=== PATIENT | male | born 1990 | race Hispanic/Latino ===

== ENCOUNTER 2020-10-02 07:28 | Observation (INO) | payer OTHER ==
[~2020-10-02] VITALS: Ht 175.3 cm; Wt 89.4 kg
[~2020-10-02 07:28] MED LIST: HYDR50TA70 PO; LR 1,000 ML IV ONE; ceFAZolin SOD 2 GM in IV 1 EA IV ONE
[2020-10-02] MEDS ORDERED: propofoL 200 MG/20 ML VIAL As Ordered ONE ×2 (10:26→11:34)
[2020-10-02] MEDS ORDERED: ONDANSETRON 4MG/2ML VIAL As Ordered ONE (10:26)
[2020-10-02] MEDS ORDERED: LIDOCAINE 2% 100MG/5ML SDV (FOR ANES.) As Ordered ONE (10:26)
[2020-10-02] MEDS ORDERED: dexameTHASONE 4 MG/ML 1ML VIAL (J1100 PER 1MG) As Ordered ONE (10:26)
[2020-10-02] MEDS ORDERED: MIDAZOLAM INJ 2MG/2ML VIAL (J2250 PER 1MG) As Ordered ONE (10:27)
[2020-10-02] MEDS ORDERED: fentaNYL 250 MCG/5 ML INJECTION (J3010) As Ordered ONE (10:27)
[2020-10-02] MEDS ORDERED: LIDOCAINE 1% MDV 20ML VIAL As Ordered ONE (10:53)
[2020-10-02] MEDS ORDERED: EPINEPHrine INJ 1 MG/ML 1ML AMP As Ordered ONE (10:53)
[2020-10-02] MEDS ORDERED: BACITRACIN PWD 50,000 UNITS VIAL As Ordered ONE (10:53)
[2020-10-02] MEDS ORDERED: HYDROmorphone HCL 2 MG/ML 1ML VIAL (J1170) As Ordered ONE (12:01)
[2020-10-02] MEDS ORDERED: ACETAMINOPHEN 1000MG 100ML IV BTL (OFIRMEV) (J0131 PER 10MG) As Ordered ONE (12:01)
--- NOTE | 2020-10-02 13:48 | POST-OPPD ---
Postoperative Procedure Note Date Of Procedure: Oct 02, 2020 PREOPERATIVE DIAGNOSIS: Bilateral gynecomastia POSTOPERATIVE DIAGNOSIS: same FINDINGS: gynecomastia bilateral PROCEDURE: Bilateral subcutaneous mastectomies for gynecomastia. SURGEON: Dr Quintero WELDING MACHINE OPERATOR RESISTANCE: Dr Caballero ANESTHESIA: General SPECIMENS: Right and Left breast tissue and suction fluid for gross path ESTIMATED BLOOD LOSS: 50 cc REPLACED: none DRAINS: 15 FR round drains x 2 COMPLICATIONS: none POSTOPERATIVE CONDITION: stable OSIEL QUINTERO DO Oct 02, 2020 13:48
--- NOTE | 2020-10-02 13:48 | ROOPDOC ---
[facility] Report Of Operation Report of Operation DATE OF PROCEDURE: 10/02/20 PREOPERATIVE DIAGNOSIS: Bilateral gynecomastia POSTOPERATIVE DIAGNOSIS: same FINDINGS: gynecomastia bilateral PROCEDURE: Bilateral subcutaneous mastectomies for gynecomastia. SURGEON: Dr Quintero EMBEDDED SOFTWARE ENGINEER: Dr Caballero ANESTHESIA: General SPECIMENS: Right and Left breast tissue and suction fluid for gross path ESTIMATED BLOOD LOSS: 50 cc REPLACED: none DRAINS: 15 FR round drains x 2 COMPLICATIONS: none POSTOPERATIVE CONDITION: stable This is a 30-year-old male who is diagnosed with bilateral gynecomastia. The pa tient is complaining of persistent tenderness on both breasts, which are bothering him. The studies were done again preoperatively for gynecomastia workup. Benign endocrine profile and positive gynecomastia on ultrasound. The patient is scheduled for surgery. All of the risks and benefits and alternatives discussed with the patient at length, and he is ready to proceed. DESCRIPTION OF PROCEDURE: On the day of surgery, he was marked in the upright position and then he was brought into the operating room, placed in supine position. Preoperative antibiotics given, sequential stockings placed on the lower calf. General anesthesia was induced. He was prepped and draped in the usual sterile fashion. We started our procedure with making a stab incision on the right lateral chest. Tumescent solution was infiltrated in the right breast, 400 mL total. Vaser liposuction was used for melting down the fat and breaking out the scar tissue on the right side, and we used 2.9 three-ring cannula with 80% of the power for 5 minutes. After that part of the procedure was completed, we used regular suction-assisted lipectomy to remove the rest of the liposuction. Then, we made an infra-areolar incision, and dissection of thick tissue started out using electrocautery under direct vision with a lighted retractor. Dr. Caballero was instrumental in assisting directing the lighted retractor which aided proper resection and hemostasis part of this procedure. The mass was completely excised using electrocautery. The pectoralis muscle was in good condition. The skin was in good condition. The wound was irrigated with bacitracin irrigation solution. Then, 15 Fr round drain was placed through the initial stab incision that was done for the liposuction and placed in the cavity and then the wound was closed with interrupted #4-0 Monocryl sutures and #5-0 plain. Then, we turned our attention to the left side. Vaser Liposuction was used for melting down the fat and breaking out the scar tissue on the left side, and we used 2.9 three-ring cannula with 80% of the power for 5 minutes. After that part of the procedure was completed, we used regular suction-assisted lipectomy to remove the rest of the liposuction. Then, we made an infra-areolar incision, and dissection of thick tissue started out using electrocautery under direct vision with a lighted retractor. Dr. Caballero was instrumental in assisting directing the lighted retractor which aided proper resection and hemostasis part of this procedure. The mass was completely excised using electrocautery. The pectoralis muscle was in good condition. The skin was in good condition. The wound was irrigated with bacitracin irrigation solution. Then, 15 Fr round drain was placed through the initial stab incision that was done for the liposuction and placed in the cavity and then the wound was closed with interrupted #4-0 Monocryl sutures and #5-0 plain. Xeroform was applied to the both nipples. A bulky dressing and a compression dressing was placed. The patient was extubated in the operating room without any difficulty, transferred to the recovery room in stable condition. OSIEL QUINTERO DO Oct 02, 2020 13:48
[2020-10-02] MEDS ORDERED: KETOROLAC TROMETHAMINE 10 MG TAB PO PRN (13:50)
[2020-10-02] MEDS: LR 1,000 ML IV SCH (13:50)
[2020-10-02] MEDS ORDERED: PERCOCET 5MG/325MG TAB PO PRN (13:50)
[2020-10-02] MEDS ORDERED: ACETAMINOPHEN TAB 650MG DOSE (2X325MG) PO PRN (13:50)
[2020-10-02] MEDS: ONDANSETRON 4MG/2ML VIAL IV PRN ×3 (14:29→22:16)
[2020-10-02] MEDS ORDERED: fentaNYL 100 MCG/2 ML INJECTION (J3010) IV PRN (14:30)
[2020-10-02] MEDS ORDERED: MEPERIDINE INJ 25 MG/ML VIAL (J2175) IV PRN (14:30)
[2020-10-02] MEDS ORDERED: oxyCODONE 5MG TAB PO PRN (14:30)
[2020-10-02] MEDS ORDERED: ONDANSETRON 4MG/2ML VIAL IV PRN (14:30)
[2020-10-02] MEDS ORDERED: METOCLOPRAMIDE INJ 10MG/2ML VIAL (J2765 PER 1) IV PRN (14:30)
[2020-10-02] MEDS ORDERED: LR 1,000 ML IV SCH (14:30)
[2020-10-02 15:59] VITALS: BP 140/84
[2020-10-02 16:15] VITALS: BP 118/61
[2020-10-02 17:15] VITALS: BP 117/63
[2020-10-02 18:12] VITALS: BP 120/70
[2020-10-02 20:15] VITALS: BP 106/60
[2020-10-03] MEDS: LR 1,000 ML IV SCH (01:15)
[2020-10-03 02:00] VITALS: BP 107/61
[2020-10-03 06:00] VITALS: BP 112/54
[2020-10-03 10:00] VITALS: BP 118/52
--- NOTE | 2020-10-03 11:39 | IPNPDOC ---
Subjective General Date Seen: Oct 03, 2020 Subject Chief Complaint/History The patient is a 30-year-old male admitted with a reason for visit of Bilateral Breast Hypertrophy. Patient is s/p bilateral mastectomies for gynecomastia. POD 1. Doing well. Had episodes of vomiting, but now resolved. Pain controlled. No other complains. Current Medications Current Medications Current Medications Medications (Trade) Dose Ordered Sig/Meredith Route PRN Reason Start Time Stop Time Status Last Admin Dose Admin Acetaminophen (Tylenol Tab) 650 mg Q6H PRN PO MILD PAIN (PS 1-4) 10/02/20 13:50 Fentanyl Citrate (Sublimaze) 25 mcg Q5MP PRN IV PAIN LEVEL 5-10 10/02/20 14:30 10/02/20 15:30 DC Ketorolac Tromethamine (ToRADol) 10 mg Q6HP PRN PO MODERATE PAIN (PS 5-7) 10/02/20 13:50 10/07/20 13:49 10/02/20 16:26 Lactated Ringer's 1,000 ml @ 75 mls/hr [id number] IV 10/02/20 13:50 10/03/20 01:15 Lactated Ringer's 1,000 ml @ 100 mls/hr Q10H IV 10/02/20 14:30 10/02/20 15:30 DC Meperidine HCl (Demerol) 12.5 mg Q5MP PRN IV SHIVERING 10/02/20 14:30 10/02/20 15:30 DC Metoclopramide HCl (REGLAN INJection) 10 mg Q6HP PRN IV NAUSEA OR VOMITING 10/02/20 14:30 10/02/20 15:30 DC Ondansetron HCl (ZOFRAN INJection) 4 mg Q4H PRN IV NAUSEA OR VOMITING 10/02/20 13:50 10/02/20 22:16 Ondansetron HCl (ZOFRAN INJection) 4 mg Q4HP PRN IV NAUSEA OR VOMITING 10/02/20 14:30 10/02/20 15:30 DC Oxycodone HCl (Roxicodone, Oxyir) 5 mg ASDIRECTED PRN PO PAIN LEVEL 1-4 10/02/20 14:30 10/02/20 15:30 DC Oxycodone/ Acetaminophen (Percocet 5mg/ 325mg Tablet) 2 tab Q4HP PRN PO PAIN LEVEL 8-10 10/02/20 13:50 10/03/20 06:09 Allergies Coded Allergies: No Known Allergies (Unverified , 09/25/20) Objective Physical Examination Examination GENERAL APPEARANCE:Patient seen, laying in bed, awake, alert, and oriented. Comfortable, in no acute distress. SKIN: Warm and moist. BREAST: Right and left soft, non-tender incisions intact. MARICRUZ drains: 35/35 cc/24 hr. NAC: Viable, warm, symmetrical, mild post-op ecchymosis, no expanding hematoma. LUNGS: Clear to auscultation bilaterally. No wheezing appreciated. HEART: No chest wall abnormalities. Regular rate and rhythm with no murmurs appreciated. ABDOMEN: Abdomen is soft, non-tender, non-distended. EXTREMITIES: No edema identified. No calf tenderness. Vital Signs Vital Signs Date Time Temp Pulse Resp B/P (MAP) Pulse Ox O2 Delivery O2 Flow Rate FiO2 10/03/20 10:00 97.7 77 18 118/52 (74) 98 Room Air 10/02/20 14:25 2.0 I&Os I&O- Last 24 Hours up to 6 AM 10/03/20 06:00 Intake Total 2000 ml Output Total 1695 ml Balance 305 ml Impression S/p bilateral mastectomies for gynecomastia POD 1 Stable for discharge. Continue with support binder Monitor drains and document daily output. No heavy lifting. Pain control. F/up plastic surgery. Plan / VTE VTE Prophylaxis Ordered?: Yes OSIEL QUINTERO DO Oct 03, 2020 11:39
[2020-10-03] MEDS ORDERED: PERCOCET PO (11:48)
== END 2020-10-03 14:20 | disposition home or self-care (01) ==
LOC: M SDC 07:28 → M MS5PR 07:29
PROVIDERS: ADMIT Plastic Surgery Surgery of the Hand; ATTEND Plastic Surgery Surgery of the Hand
DX: N62 Hypertrophy of breast (principal); F41.9 Anxiety disorder, unspecified; Z79.899 Other long term (current) drug therapy
CPT/HCPCS: 19300; 88300; 88305; 96374; 96376; J0131; J0690; J1100; J1170; J2250; J2405; J3010

== ENCOUNTER → 2024-03-17 | Outpatient (REF) | payer OTHER ==
[~2024-03-17] MED LIST changes: -LR 1,000 ML IV ONE; +PERCOCET PO; -ceFAZolin SOD 2 GM in IV 1 EA IV ONE
[2024-03-17 09:48] LABS: SEMEN APPEARANCE OPAQUE (OPAQUE)
[2024-03-17 09:49] LABS: SEMEN VISCOSITY VISCOUS (LIQUID); SEMEN VOLUME 4.2 ml (2.0-5.0); SEMEN pH 8.5 (7.0-8.0); SPERM CONCENTRATION 16.6 M/ml (>=15.0); WBC CONCENTRATION <=1 M/ml (<=1 M/ml)
== END ==
LOC: M LAB REF 09:07
PROVIDERS: ATTEND Specialist
DX: N46.9 Male infertility, unspecified (principal)

== ENCOUNTER 2024-09-13 21:35 | Emergency (ER) | payer OTHER ==
[~2024-09-13] VITALS: Ht 175.3 cm; Wt 99.8 kg
[2024-09-13 21:38] VITALS: TEMP 97.9
[2024-09-13] MEDS: ONDANSETRON 4MG 2ML VIAL IV ONE (22:36)
[2024-09-13] MEDS: MECLIZINE 25 MG TABLET PO ONE (22:36)
[2024-09-13] MEDS: ACETAMINOPHEN *IV* 1,000 MG in IV 1 EA IV ONE (22:36)
[2024-09-13 22:39] LABS: BASO # 0.1 10^3/uL (0.0-0.2); BASO % 0.7 % (0.0-1.0); EOS # 0.3 10^3/uL (0.0-0.5); EOS % 4.4 % (0.0-3.0); HEMATOCRIT 45.6 % (42.0-52.0); HEMOGLOBIN 15.2 g/dl (13.5-17.5); LYMPH # 2.1 10^3/uL (1.5-5.0); MEAN CORPUSCULAR HEMOGLOBIN 29.5 pg (27.0-33.0); MEAN CORPUSCULAR HGB CONC 33.3 g/dl (32.0-36.5); MEAN CORPUSCULAR VOLUME 88.5 fl (80.0-96.0); MONO # 0.7 10^3/uL (0.0-0.8); MONO % 10.4 % (2.0-8.0); NEUTROPHILS # 3.8 10^3/uL (1.5-8.5); NEUTROPHILS % 53.5 % (36.0-66.0); PLATELET COUNT, AUTOMATED 193 10^3/uL (150-450); RED BLOOD COUNT 5.15 10^6/uL (4.30-6.10)
[2024-09-13 23:14] LABS: BLOOD UREA NITROGEN 25 MG/DL (9-23); CALCIUM LEVEL 8.7 MG/DL (8.5-10.1); CARBON DIOXIDE LEVEL 28 MMOL/L (20-31); CHLORIDE LEVEL 104 MMOL/L (98-107); CREATININE FOR GFR 0.87 MG/DL (0.70-1.30); GLOMERULAR FILTRATION RATE > 60.0 (>60); GLUCOSE, FASTING 91 MG/DL (60-100); POTASSIUM SERUM 4.1 MMOL/L (3.5-5.1); SODIUM LEVEL 139 MMOL/L (136-145)
[2024-09-13] MEDS ORDERED: ISOVUE-370 76% 100ML VIAL As Ordered ONE (23:16)
[2024-09-14] MEDS: diazePAM 10MG/2ML SYRINGE IV ONE (00:43)
[2024-09-14] MEDS: NS (Normal Saline) 0.9% 1,000 ML IV ONE (00:43)
[2024-09-14] MEDS ORDERED: MECL-209 PO (02:50)
[2024-09-14 03:01] VITALS: BP 121/73; O2SAT 96
== END 2024-09-14 03:10 | disposition home or self-care (01) ==
LOC: M ED 21:35
DX: R42 Dizziness and giddiness (principal); F41.1 Generalized anxiety disorder; M25.562 Pain in left knee; M25.519 Pain in unspecified shoulder; G43.909 Migraine, unspecified, not intractable, without status migrainosus; F17.290 Nicotine dependence, other tobacco product, uncomplicated; Z79.899 Other long term (current) drug therapy
CPT/HCPCS: 70450; 70496; 70498; 80048; 85025; 93005; 96361; 96365; 96375; 99284; J0131; J2405; J3360; Q9967

== ENCOUNTER → 2024-10-18 | Outpatient (CLI) | payer OTHER ==
[~2024-10-18] MED LIST changes: +ISOVUE-300 61% 100ML VIAL As Ordered ONE; +LIDOCAINE 1% MDV 20ML VIAL As Ordered ONE; +MECL-209 PO; +PROHANCE 279.3MG/ML 5ML VIAL As Ordered ONE
== END ==
LOC: M RAD 12:51
PROVIDERS: ATTEND Physician Assistant
DX: M25.511 Pain in right shoulder (principal); M75.01 Adhesive capsulitis of right shoulder
CPT/HCPCS: 23350; 73223; 77002; A9576; Q9967

== ENCOUNTER 2025-02-02 08:01 | Emergency (ER) | payer OTHER ==
[~2025-02-02] VITALS: Ht 175.3 cm; Wt 104.5 kg
[~2025-02-02 08:01] MED LIST changes: -ISOVUE-300 61% 100ML VIAL As Ordered ONE; -LIDOCAINE 1% MDV 20ML VIAL As Ordered ONE; -PROHANCE 279.3MG/ML 5ML VIAL As Ordered ONE
[2025-02-02] MEDS ORDERED: MELO15TA28 (10:21)
[2025-02-02] MEDS ORDERED: SERT50TA29 (10:21)
[2025-02-02] MEDS ORDERED: ACET-683 PO (10:21)
[2025-02-02] MEDS ORDERED: D 50CAP2 (10:21)
[2025-02-02] MEDS ORDERED: IBUP200C25 PO (10:21)
[2025-02-02] MEDS ORDERED: CAPS0.022 (10:21)
[2025-02-02 10:42] VITALS: BP 132/82; TEMP 97.2; O2SAT 98
== END 2025-02-02 10:52 | disposition home or self-care (01) ==
LOC: M ED 08:01
DX: S93.402A Sprain of unspecified ligament of left ankle, initial encounter (principal); X50.1XXA Overexertion from prolonged static or awkward postures, initial encounter; Y92.009 Unspecified place in unspecified non-institutional (private) residence as the place of occurrence of the external cause; Y93.9 Activity, unspecified; Y99.9 Unspecified external cause status; F17.200 Nicotine dependence, unspecified, uncomplicated